=== PATIENT | male | born 2000 | race African-American/Black ===

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

== ENCOUNTER 2022-05-30 00:06 | Emergency (ER) | payer OTHER ==
[2022-05-30] MEDS ORDERED: MORPHINE 4 MG/ML SYR ONE (00:43)
[2022-05-30] MEDS ORDERED: ONDANSETRON 4 MG/2 ML VIAL ONE (00:43)
[2022-05-30] MEDS ORDERED: propofoL 200 MG/20 ML VIAL IV ONE ×2 (01:19→01:21)
--- NOTE | 2022-05-30 02:24 | ER ---
Nurse's Notes [facility] Name: Thad Burroughs III Age: 21 yrs Sex: Male : 2000 Arrival Date: 05/30/2022 Time: 00:08 Bed 3 Private MD: Diagnosis: Dislocation of metacarpal (bone), proximal end of right hand, initial encounter-with fracture Presentation: 05/30 00:16 Chief complaint: Patient states: punched wall with my right fist pain and deformity kl noted to right hand. Coronavirus screen: Vaccine status: Patient reports being unvaccinated. Ebola Screen: Patient negative for fever greater than or equal to 101.5 degrees Fahrenheit, and additional compatible Ebola Virus Disease symptoms. Initial Sepsis Screen: Does the patient meet any 2 criteria? No. Patient's initial sepsis screen is negative. Does the patient have a suspected source of infection? No. Patient's initial sepsis screen is negative. Risk Assessment: Do you want to hurt yourself or someone else? Patient reports no desire to harm self or others. 00:16 Method Of Arrival: Ambulatory kl 00:16 Acuity: RUBY 3 kl 02:24 Onset of symptoms was May 30, 2022. aa9 Triage Assessment: 00:19 General: Appears uncomfortable, well groomed, well developed, Behavior is calm, kl cooperative. Pain: Complains of pain in right hand Pain currently is 10 out of 10 on a pain scale. Quality of pain is described as throbbing, Pain began 30 min ago. Musculoskeletal: Circulation, motion, and sensation intact. Range of motion: Swelling present in right hand. 02:24 Injury Description: Deformity sustained to right hand. aa9 Historical: - Allergies: 00:18 No Known Allergies; kl - PMHx: 00:18 None; kl - PSHx: 00:18 None; kl - Immunization history:: Adult Immunizations not immunized. - Social history:: Smoking status: Reported history of juuling and/or vaping. - Family history:: not pertinent. - Hospitalizations: : No recent hospitalization is reported. Screenin:42 [facility] ED Fall Risk Assessment (Adult) History of falling in the last 3 months, aa9 including since admission No falls in past 3 months (0 pts) Confusion or Disorientation No (0 pts) Intoxicated or Sedated No (0 pts) Impaired Gait No (0 pts) Mobility Assist Device Used No (0 pt) Altered Elimination No (0 pt) Score/Fall Risk Level 0 - 2 = Low Risk Oriented to surroundings, Maintained a safe environment. Abuse screen: Denies threats or abuse. Denies injuries from another. Nutritional screening: No deficits noted. Tuberculosis screening: No symptoms or risk factors identified. Assessment: 00:52 General: Appears uncomfortable, slender, Behavior is calm, cooperative. Pain: Complains aa9 of pain in right hand. Respiratory: Airway is patent Respiratory effort is even, unlabored. Musculoskeletal: Swelling present in right hand. Vital Signs: 00:16 BP 130 / 83; Pulse 61; Resp 18; Temp 98(TE); Pulse Ox 100% on R/A; Weight 65.77 kg (R); kl Height 5 ft. 10 in. (177.80 cm); Pain 10/10; 01:15 BP 143 / 92; Pulse 76; Resp 19 S; Temp 97.9(TE); Pulse Ox 100% on 2 lpm NC; aa9 02:15 BP 142 / 92; Pulse 83; Resp 15 S; Pulse Ox 100% on 2 lpm NC; aa9 00:16 Body Mass Index 20.81 (65.77 kg, 177.80 cm) ED Course: 00:08 Patient arrived in ED. ja2 00:11 Carlos Turner MD is Attending Physician. rn 00:18 Triage completed. 00:52 Inserted saline lock: 20 gauge in left antecubital area, using aseptic technique. aa9 00:53 Viktoriya Samson, SHERWIN is Primary Nurse. aa9 00:55 XRAY Hand RIGHT 3 View In Process Unspecified. EDMS 01:41 Assist provider with reduction of right wrist using manipulation, Set up for procedure. aa9 Performed by Carlos Turner MD Immobilized with wrist splint, Patient tolerated well. 01:42 Patient has correct armband on for positive identification. Bed in low position. Call aa9 light in reach. Side rails up X2. Adult w/ patient. Client placed on continuous cardiac and pulse oximetry monitoring. NIBP monitoring applied. 01:42 Splint/sling/ice applied as appropriate. aa9 02:10 XRAY Hand RIGHT 2 View In Process Unspecified. EDMS 02:23 Ricki Redding MD is Referral Physician. rn 02:44 IV discontinued, intact, bleeding controlled, No redness/swelling at site. Pressure vc1 dressing applied. Administered Medications: 00:52 Drug: morphine 4 mg Route: IVP; Infused Over: 4 mins; Site: left antecubital; aa9 01:16 Follow up: Response: No adverse reaction aa9 00:52 Drug: Zofran (Ondansetron) 4 mg Route: IVP; Site: left antecubital; aa9 01:16 Follow up: Response: No adverse reaction aa9 01:02 Drug: Propofol 100 mg {Note: 0102 3 ML administed via L AC, 0106 3 ML admin via L AC, aa9 0110 3 ML admin via L AC, 0112 2 ML admin via L AC.} Route: IVP; Site: left antecubital; 01:12 Follow up: Response: RASS: Moderate sedation (-3) aa9 01:38 Not Given (Physician Discretion): Ketamine 1 mg/kg IVP once aa9 Medication: 01:42 VIS not applicable for this client. aa9 Outcome: 02:23 Discharge ordered by . rn 02:25 Condition: stable aa9 02:43 Discharged to home ambulatory, with family. vc1 02:43 Discharge instructions given to patient, Instructed on discharge instructions, follow up and referral plans. medication usage, Demonstrated understanding of instructions, follow-up care, medications. 02:43 Prescriptions given X 2. 02:44 Patient left the ED. vc1 Signatures: Dispatcher [employer] EDValeri Bacon RN RN kl Nieto, Roman, MD MD rn Alexander, Jessica ja2 Calcote, Vanessa, RN RN vc1 Viktoriya Samson RN RN aa9 Corrections: (The following items were deleted from the chart) 00:53 00:52 Musculoskeletal: Bony deformity noted of right hand aa9 aa9
--- NOTE | 2022-05-30 02:24 | EDPHYS ---
Physician Documentation [facility] Name: Thad Burroughs III Age: 21 yrs Sex: Male : 2000 Arrival Date: 05/30/2022 Time: 00:08 Bed 3 Private MD: ED Physician aCrlos Turner HPI: 05/30 00:21 This 21 yrs old Black Male presents to ER via Ambulatory with complaints of Hand Injury.rn 00:21 The patient or guardian reports decreased range of motion, injury, pain. The complaints rn affect the right hand. Onset: The symptoms/episode began/occurred just prior to arrival. Modifying factors: The symptoms are alleviated by nothing, the symptoms are aggravated by movement. Associated signs and symptoms: Pertinent negatives: cyanosis distally, decreased sensation distally, numbness distally, tingling distally. Severity of symptoms: At their worst the symptoms were moderate, in the emergency department the symptoms are unchanged. The patient has not experienced similar symptoms in the past. The patient has not recently seen a physician. Pt reports punched a wall prior to arrival, no open wounds, + pain to proximal right hand with swelling. . Historical: - Allergies: 00:18 No Known Allergies; kl - PMHx: 00:18 None; kl - PSHx: 00:18 None; kl - Immunization history:: Adult Immunizations not immunized. - Social history:: Smoking status: Reported history of juuling and/or vaping. - Family history:: not pertinent. - Hospitalizations: : No recent hospitalization is reported. ROS: 00:21 Constitutional: Negative for fever, chills, and weight loss, MS/Extremity: + right hand rn injury and pain Skin: NO laceration Neuro: Negative for weakness, numbness, tingling Exam: 00:21 Constitutional: This is a well developed, well nourished patient who is awake, alert, rn and in no acute distress. MS/ Extremity: Pulses equal, no cyanosis. Neurovascular intact. + proximal right hand with dorsal angulation/deformity along proximal MCs, no open wounds Vital Signs: 00:16 BP 130 / 83; Pulse 61; Resp 18; Temp 98(TE); Pulse Ox 100% on R/A; Weight 65.77 kg (R); kl Height 5 ft. 10 in. (177.80 cm); Pain 10/10; 01:15 BP 143 / 92; Pulse 76; Resp 19 S; Temp 97.9(TE); Pulse Ox 100% on 2 lpm NC; aa9 02:15 BP 142 / 92; Pulse 83; Resp 15 S; Pulse Ox 100% on 2 lpm NC; aa9 00:16 Body Mass Index 20.81 (65.77 kg, 177.80 cm) kl Procedures: 01:31 Reduction: of the right hand, metacarpals, using traction, manipulation, flexion of rn fingers and MCs, Immobilized with wrist splint, Patient tolerated well. Post reduction film - reveals improved alignment. Moderate sedation: Pre-procedure assessment: the patient has been NPO 4 hour(s) prior to arrival, ASA physical classification: I - healthy, no underlying organic disease, Airway assessment: able to hyperextend neck, able to maintain airway, can open mouth without difficulty, Monitoring during procedure: color television console monitor, continuous pulse oximetry, nurse at bedside at all times, Medications employed: propofol 80mg, Post-procedure assessment: the patient is mildly sedated, Respiratory status: even and unlabored, a reversal agent was not used. MDM: 00:11 Patient medically screened. rn 02:03 Differential diagnosis: dislocation, closed fracture, contusion. Data reviewed: vital rn signs, nurses notes, radiologic studies, plain films, and as a result, I will discharge patient. Independent interpretation of the following test(s) in the Emergency Department X-Ray: My interpretation is Xray right hand shows fracture/dislocation of multiple metacarpals. Counseling: I had a detailed discussion with the patient and/or guardian regarding: the historical points, exam findings, and any diagnostic results supporting the discharge/admit diagnosis, radiology results, the need for outpatient follow up, to return to the emergency department if symptoms worsen or persist or if there are any questions or concerns that arise at home. Response to treatment: the patient's symptoms have markedly improved after treatment, and as a result, I will discharge patient. Special discussion: I discussed with the patient/guardian in detail that at this point there is no indication for admission to the hospital. It is understood, however, that if the symptoms persist or worsen the patient needs to return immediately for re-evaluation. Based on the history and exam findings, there is no indication for further emergent testing or inpatient evaluation. I discussed with the patient/guardian the need to see the hand specialist for further evaluation of the symptoms. 03:19 ED course: Following reduction of metacarpal bones, patient with full ROM, NV intact, rn pain significantly decreased. Placed in splint and dc home with hand f/u. TOld patient of importance of f/u to decrease chance of nursing home complications given young age. Pt happy with treatment and feels much better. . 05/30 00:19 Order name: XRAY Hand RIGHT 3 View rn 05/30 01:31 Order name: XRAY Hand RIGHT 2 View rn 05/30 00:19 Order name: IV Start; Complete Time: 00:52 rn 05/30 00:19 Order name: NPO; Complete Time: 00:42 rn Administered Medications: 00:52 Drug: morphine 4 mg Route: IVP; Infused Over: 4 mins; Site: left antecubital; aa9 01:16 Follow up: Response: No adverse reaction aa9 00:52 Drug: Zofran (Ondansetron) 4 mg Route: IVP; Site: left antecubital; aa9 01:16 Follow up: Response: No adverse reaction aa9 01:02 Drug: Propofol 100 mg {Note: 0102 3 ML administed via L AC, 0106 3 ML admin via L AC, aa9 0110 3 ML admin via L AC, 0112 2 ML admin via L AC.} Route: IVP; Site: left antecubital; 01:12 Follow up: Response: RASS: Moderate sedation (-3) aa9 01:38 Not Given (Physician Discretion): Ketamine 1 mg/kg IVP once aa9 Disposition Summary: 05/30/22 02:23 Discharge Ordered Location: Home rn Problem: new rn Symptoms: have improved rn Condition: Stable rn Diagnosis - Dislocation of metacarpal (bone), proximal end of right hand, initial encounter - rn with fracture Followup: rn - With: - When: 5 - 6 days - Reason: Recheck today's complaints, Re-evaluation by your physician Discharge Instructions: - Discharge Summary Sheet rn - Cast or Splint Care, Adult rn - Metacarpal Fracture rn - Closed Reduction for Metacarpal Dislocation rn Forms: - Medication Reconciliation Form rn - Thank You Letter rn - Antibiotic government gauger - Prescription Opioid Use rn Prescriptions: - Ibuprofen 800 mg Oral Tablet - take 1 tablet by ORAL route every 12 hours As needed take with food; 20 tablet; rn Refills: 0, Product Selection Permitted - Tramadol 50 mg Oral Tablet - take 1 tablet by ORAL route every 8 hours as needed; 12 tablet; Refills: 0, rn Product Selection Permitted Signatures: Dispatcher [employer] Valeri Bolden, RN RN Carlos Duong MD MD rn Avalos, Aylin, RN RN aa9
[2022-05-30 02:49] VITALS: O2SAT 100
[2022-05-30 02:50] VITALS: TEMP 97.9
[2022-05-30 02:51] VITALS: BP 142/92
--- NOTE | 2022-05-31 16:02 | RAD REPORT ---
EXAM DESCRIPTION: RAD - Hand Right 2 View - 05/30/2022 2:08 am CLINICAL HISTORY: The patient is 21 years old and is Male; post reduction TECHNIQUE: Frontal and lateral views of the right hand. COMPARISON: No relevant prior studies available. FINDINGS: BONES/JOINTS: Interval reduction of the previously dislocated fourth and fifth carpometa carpal joints. The previously demonstrated small fracture fragment is no longer visualized. SOFT TISSUES: Mild soft tissue swelling of the hand is present. No radiopaque foreign body. IMPRESSION: 1. Interval reduction of the previously dislocated fourth and fifth carpometacarpal [place] [facility]. 2. The previously demonstrated small fracture fragment is no longer visualized. Consider a CT of the hand to exclude intra-articular bone fragment. Electronically signed by: Adriana Ware MD 05/30/2022 3:02 AM WIRE MESH FILTER FABRICATOR Due to temporary technical issues with the PACS/Fluency reporting system, reports are being signed by the in house radiologists without review as a courtesy to insure prompt reporting. The interpreting radiologist is fully responsible for the content of the report.
--- NOTE | 2022-05-31 16:04 | RAD REPORT ---
EXAM DESCRIPTION: RAD - Hand Right 3 View - 05/30/2022 12:54 am CLINICAL HISTORY: The patient is 21 years old and is Male; PAIN TECHNIQUE: Frontal, lateral and oblique views of the right hand. COMPARISON: No relevant prior studies available. FINDINGS: BONES/JOINTS: Dislocation of the fourth and fifth carpometacarpal joints is noted. A sma ll chip fracture adjacent to the base of the fourth metacarpal is present. The donor sites is uncerta in though may be off of the hamate. SOFT TISSUES: Unremarkable. No radiopaque foreign body. IMPRESSION: Fracture dislocation of the fourth and fifth metacarpals. Electronically signed by: Adriana Ware MD 05/30/2022 1:43 AM TYPIST Due to temporary technical issues with the PACS/Fluency reporting system, reports are being signed by the in house radiologists without review as a courtesy to insure prompt reporting. The interpreting radiologist is fully responsible for the content of the report.
== END 2022-05-30 02:44 | disposition home or self-care (01) ==
LOC: ER 00:06
PROC: 0PSP35Z Reposition Right Metacarpal with External Fixation Device, Percutaneous Approach (ICD-10-PCS; principal; 2022-05-30)
DX: S62.304A Unspecified fracture of fourth metacarpal bone, right hand, initial encounter for closed fracture (principal); S62.306A Unspecified fracture of fifth metacarpal bone, right hand, initial encounter for closed fracture
CPT/HCPCS: 73130; 73120; 96375; 96374; 99285; 26605 ×2; J2704; J2405